=== PATIENT | female | born 1945 | race Caucasian/White ===

== ENCOUNTER → 2016-05-24 | Outpatient (CLI) | payer MEDICARE, OTHER ==
[~2016-05-24] MED LIST: ATORVASTATIN CA80 MG PO; Colace PO; DIGESTIVE ADVA1 EAC1 PO; Flagyl PO; Habitrol,Nicoderm CQ TD; Levaquin PO
== END | disposition home or self-care (01) ==
LOC: CDC 14:39
DX: I45.10 Unspecified right bundle-branch block (principal); D17.9 Benign lipomatous neoplasm, unspecified
CPT/HCPCS: 93000

== ENCOUNTER 2016-05-30 06:57 | Day surgery (SDC) | payer OTHER ==
[~2016-05-30] VITALS: Ht 162.6 cm; Wt 79.4 kg
[2016-05-30 07:27] VITALS: BP 137/69
[2016-05-30] MEDS ORDERED: PERCOCET 5/31 TABLET PO (11:35)
[2016-05-30 12:45] VITALS: BP 199/80
[2016-05-30 13:45] VITALS: BP 122/58
== END 2016-05-30 13:54 | disposition home or self-care (01) ==
LOC: SDC 06:57
DX: D17.0 Benign lipomatous neoplasm of skin and subcutaneous tissue of head, face and neck (principal); K21.9 Gastro-esophageal reflux disease without esophagitis; E78.5 Hyperlipidemia, unspecified; Z87.891 Personal history of nicotine dependence
CPT/HCPCS: 88304; J0690; J2405; J3010

== ENCOUNTER → 2017-05-14 | Outpatient (CLI) | payer MEDICARE, OTHER ==
[~2017-05-14] MED LIST changes: +PERCOCET 5/31 TABLET PO
== END | disposition home or self-care (01) ==
LOC: CDC 13:56
DX: R00.1 Bradycardia, unspecified (principal); I49.1 Atrial premature depolarization; I45.10 Unspecified right bundle-branch block; E78.5 Hyperlipidemia, unspecified
CPT/HCPCS: 93000